=== PATIENT | male | born 1945 | race Caucasian/White ===

== ENCOUNTER → 2017-04-11 | Outpatient (CLI) | payer OTHER ==
[~2017-04-11] MED LIST: ALLER-EASE180 MG PO; LIPITOR TAB 2020 MG PO; LISINOPRIL20 MG PO; MELATONIN10 M2 PO; METOPROLOL TART25 MG PO; NORVASC 5 MG TAB5 MG PO; PLAVIX 75 MG TA75 MG PO; PROTONIX40 MG PO; SPIRIVA HANDIH18 MCG INH; TRAZODONE HCL100 MG PO; VENTOLIN HFA8 GM INH; ZANTAC150 MG PO
== END ==
LOC: EXRD 10:07
DX: M25.562 Pain in left knee (principal)
CPT/HCPCS: 73560

== ENCOUNTER → 2021-06-11 | Outpatient (CLI) | payer MEDICARE | LOC: KOH-I 12:44 | DX: F17.210 Nicotine dependence, cigarettes, uncomplicated (principal) | CPT/HCPCS: 71271 ==